=== PATIENT | female | born 1940 | race Two or more races ===

== ENCOUNTER 2017-12-13 10:18 | Outpatient (CLI) | payer OTHER | END 2017-12-13 15:42 | disposition home or self-care (01) | LOC: RX STUDY 10:18 | DX: R13.19 Other dysphagia (principal) ==

== ENCOUNTER 2018-08-29 12:15 | Outpatient (CLI) | payer OTHER ==
[~2018-08-29 12:15] MED LIST: CIPRO500 MG PO; OMEPRAZOLE40 MG PO; ZANTAC300 MG PO
== END 2018-08-29 13:00 | disposition home or self-care (01) ==
LOC: NUCLEAR 12:15
DX: I70.213 Atherosclerosis of native arteries of extremities with intermittent claudication, bilateral legs (principal)

== ENCOUNTER 2018-12-21 11:22 | Outpatient (CLI) | payer OTHER | END 2018-12-21 11:39 | disposition home or self-care (01) | LOC: NUCLEAR 11:22 | DX: I70.213 Atherosclerosis of native arteries of extremities with intermittent claudication, bilateral legs (principal); M79.661 Pain in right lower leg; M79.662 Pain in left lower leg ==

== ENCOUNTER 2019-03-16 10:53 | Outpatient (CLI) | payer OTHER | END 2019-03-16 11:04 | disposition home or self-care (01) | LOC: NUCLEAR 10:53 | DX: I70.213 Atherosclerosis of native arteries of extremities with intermittent claudication, bilateral legs (principal) ==

== ENCOUNTER 2019-04-20 13:55 | Outpatient (CLI) | payer OTHER | END 2019-04-20 13:56 | disposition home or self-care (01) | LOC: RAD 13:55 | DX: M12.88 Other specific arthropathies, not elsewhere classified, other specified site (principal) ==

== ENCOUNTER 2019-04-23 13:13 | Emergency (ER) | payer OTHER ==
[~2019-04-23] VITALS: Ht 177.8 cm; Wt 58.1 kg
[2019-04-23] MEDS ORDERED: CLONAZEPAM0.5 MG (13:29)
[2019-04-23] MEDS ORDERED: ALENDRONATE SOD70 MG (13:29)
[2019-04-23] MEDS ORDERED: PLAVIX75 MG (13:29)
[2019-04-23] MEDS ORDERED: PROPANOLOL (13:30)
[2019-04-23] MEDS ORDERED: ZOLOFT25 MG (13:30)
[2019-04-23] MEDS ORDERED: BAYER THERAPY325 MG (13:30)
== END 2019-04-23 16:10 | disposition home or self-care (01) ==
LOC: ER 13:13
DX: B02.39 Other herpes zoster eye disease (principal)

== ENCOUNTER 2019-11-03 11:08 | Outpatient (CLI) | payer OTHER ==
[~2019-11-03 11:08] MED LIST changes: +ALENDRONATE SOD70 MG; +BAYER THERAPY325 MG; +CLONAZEPAM0.5 MG; +PLAVIX75 MG; +PROPANOLOL; +ZOLOFT25 MG
== END 2019-11-03 11:11 | disposition home or self-care (01) ==
LOC: NUCLEAR 11:08
DX: I70.213 Atherosclerosis of native arteries of extremities with intermittent claudication, bilateral legs (principal)

== ENCOUNTER 2020-05-20 11:25 | Outpatient (CLI) | payer OTHER | END 2020-05-20 11:28 | disposition home or self-care (01) | LOC: NUCLEAR 11:25 | PROVIDERS: ATTEND Specialist | DX: M81.0 Age-related osteoporosis without current pathological fracture (principal) ==

== ENCOUNTER 2021-03-11 10:39 | Outpatient (CLI) | payer OTHER | END 2021-03-11 10:45 | disposition home or self-care (01) | LOC: NUCLEAR 10:39 | PROVIDERS: ATTEND Radiology Diagnostic Radiology | DX: I70.213 Atherosclerosis of native arteries of extremities with intermittent claudication, bilateral legs (principal) ==

== ENCOUNTER 2021-03-17 07:00 | Outpatient (CLI) | payer OTHER | END 2021-03-17 08:00 | disposition home or self-care (01) | LOC: PPH VACUNA 07:00 | PROVIDERS: ATTEND Emergency Medicine Pediatric Emergency Medicine | DX: Z23 Encounter for immunization (principal) ==

== ENCOUNTER 2021-04-14 12:08 | Outpatient (CLI) | payer OTHER | END 2021-04-14 13:40 | disposition home or self-care (01) | LOC: RAD 12:08 | PROVIDERS: ATTEND Internal Medicine Cardiovascular Disease | DX: M25.571 Pain in right ankle and joints of right foot (principal); M12.88 Other specific arthropathies, not elsewhere classified, other specified site ==

== ENCOUNTER 2021-08-26 11:49 | Outpatient (CLI) | payer OTHER | END 2021-08-26 12:01 | disposition home or self-care (01) | LOC: MAMO-SONO 11:49 | PROVIDERS: ATTEND Obstetrics & Gynecology | DX: N60.11 Diffuse cystic mastopathy of right breast (principal) ==

== ENCOUNTER 2021-09-30 14:07 | Outpatient (CLI) | payer OTHER | END 2021-09-30 14:12 | disposition home or self-care (01) | LOC: RAD 14:07 | PROVIDERS: ATTEND Internal Medicine Cardiovascular Disease | DX: M12.9 Arthropathy, unspecified (principal); M46.48 Discitis, unspecified, sacral and sacrococcygeal region ==